=== PATIENT | female | born 1940 | race Caucasian/White ===

== ENCOUNTER 2018-12-08 10:09 | Inpatient (IN) ==
[2018-12-08] MEDS ORDERED: CeFAZolin Syr 2,000MG/20 ML 2,000 MG/20 ML SYRINGE IVPB ONE (10:38)
[2018-12-08] MEDS ORDERED: Ringers Solution, Lactated 1,000 ML IVC SCH ×2 (10:45→16:09)
[2018-12-08] MEDS ORDERED: Acetaminophen IV 1,000 MG/100 ML INFUS..BTL IVPB ONE (11:34)
[2018-12-08] MEDS ORDERED: Famotidine 20 MG/2 ML VIAL IVP ONE (11:34)
[2018-12-08] MEDS ORDERED: Pregabalin 75 MG CAPSULE PO ONE (11:34)
[2018-12-08] MEDS ORDERED: Lidocaine -MPF 2% 2 ML VIAL ONE (11:43)
[2018-12-08] MEDS ORDERED: *HR* FentaNYL (PF) 100 MCG/2 ML VIAL ONE (11:43)
[2018-12-08] MEDS ORDERED: Ondansetron 4 MG/2 ML VIAL ONE (11:43)
[2018-12-08] MEDS ORDERED: Dexamethasone 4 MG/ML VIAL ONE (11:43)
[2018-12-08] MEDS ORDERED: Tranexamic Acid 1,000 MG/10 ML VIAL ONE (12:02)
[2018-12-08] MEDS ORDERED: Propofol 500 MG/50 ML INFUS..BTL ONE (12:05)
[2018-12-08] MEDS ORDERED: Ethanol\\Acetic Acid\\Na Ace\\Ben 1,000 ML IRRIG.SOLN IR ONE (13:07)
[2018-12-08] MEDS ORDERED: EPHEDrine 50 MG/ML VIAL ONE (13:54)
[2018-12-08] MEDS ORDERED: *HR* PHENYLEPHRINE 1,000 MCG/10 ML SYRINGE IVP ONE (13:54)
[2018-12-08 15:35] LABS: Hematocrit 31.2 % (35.3-44.9); Hemoglobin 9.8 g/dL (11.5-15.4)
[2018-12-08] MEDS ORDERED: Temazepam 15 MG CAPSULE PO PRN (16:09)
[2018-12-08] MEDS ORDERED: HYDROcodone BIT/Homatropine 5 MG TABLET PO PRN (16:09)
[2018-12-08] MEDS ORDERED: Sennosides 8.6 MG TABLET PO PRN (16:09)
[2018-12-08] MEDS ORDERED: MOM Conc 10 ML UD.LIQ PO PRN (16:09)
[2018-12-08] MEDS ORDERED: Ondansetron 4 MG/2 ML VIAL IVP PRN (16:09)
[2018-12-08] MEDS ORDERED: *HR* OxyCODONE Immed Rel 5 MG TABLET PO PRN (16:09)
[2018-12-08] MEDS ORDERED: Naloxone 0.4 MG/ML INJ IVP PRN (16:09)
[2018-12-08] MEDS ORDERED: *HR* Promethazine 25 MG/ML VIAL IVP PRN (16:09)
[2018-12-08] MEDS ORDERED: traMADol 50 MG TABLET PO PRN (16:09)
[2018-12-08] MEDS ORDERED: *HR* Enoxaparin 30 MG/0.3 ML SYRINGE SQ SCH (18:00)
[2018-12-08] MEDS: Ascorbic Acid 500 MG TABLET PO SCH (18:25)
[2018-12-08] MEDS: *HR* LORazepam 1 MG TABLET PO SCH (23:04)
[2018-12-09 05:59] LABS: Hematocrit 25.5 % (35.3-44.9); Hemoglobin 8.3 g/dL (11.5-15.4); Immature Granulocytes % 0.4 % (0-4); Lymphocytes # 0.9 K/mcL (0.6-4.6); Lymphocytes % 8.9 %; Mean Corpuscular HGB Conc 32.5 g/dL (31.6-35.5); Mean Corpuscular Hemoglobin 26.3 pg (28.0-33.3); Mean Corpuscular Volume 80.7 fL (83.0-100.0); Mean Platelet Volume 9.9 fL (9.4-12.4); Monocytes # 1.1 K/mcL (0.0-1.3); Monocytes % 11.4 %; Neutrophils # 7.8 K/mcL (1.6-8.9); Platelet Count 284 K/mcL (140-400); Red Blood Count 3.16 M/mcL (3.82-4.97); Red Cell Distribution Width 14.4 % (11.5-14.5); Segmented Neutrophils % 79.3 %; White Blood Count 9.8 K/mcL (4.3-11.1)
[2018-12-09 06:16] LABS: BUN/Creatinine Ratio 12 (6-26); Blood Urea Nitrogen 9 mg/dL (8-23); Calcium 9.3 mg/dL (8.6-10.3); Carbon Dioxide 23 mEq/L (23-29); Chloride 103 mEq/L (98-107); Glucose 148 mg/dL (70-105); Osmolality,Calculated 281 (280-300); Sodium 135 mEq/L (136-145); eGFR For African Americans > 60 (> 60); eGFR For Non-African Americans > 60 (> 60)
[2018-12-09] MEDS ORDERED: *HR* Enoxaparin 30 MG/0.3 ML SYRINGE SQ SCH (08:00)
[2018-12-09] MEDS ORDERED: Multivit/Ca/Min/Fe/FA 1 TAB TABLET PO SCH (09:00)
[2018-12-09] MEDS ORDERED: NON-FORMULARY MEDICATION 1 EACH EACH (Multivitamin [One Daily Essential] 1 TAB) PO SCH (09:00)
[2018-12-09] MEDS: Ascorbic Acid 500 MG TABLET PO SCH (09:25)
[2018-12-09] MEDS: *HR* LORazepam 1 MG TABLET PO SCH (09:26)
[2018-12-09 14:40] LABS: Hematocrit 26.1 % (35.3-44.9); Hemoglobin 8.4 g/dL (11.5-15.4)
[2018-12-09 16:26] VITALS: BP 110/58
== END 2018-12-09 17:29 | disposition home or self-care (01) | DRG 470 ==
LOC: SAMDAY 10:09 → 3NENU 15:54
PROVIDERS: ADMIT Orthopaedic Surgery; ATTEND Orthopaedic Surgery